=== PATIENT | female | born 1995 | race Caucasian/White ===

== ENCOUNTER → 2019-11-09 10:04 | Outpatient (BNVA) | payer OTHER, SELFPAY | PROVIDERS: Family Provider General Practice; Referring Provider Obstetrics & Gynecology; Visit Provider Obstetrics & Gynecology | DX: Z32.01 Encounter for pregnancy test, result positive (principal) | CPT/HCPCS: 81025 ==

== ENCOUNTER → 2019-11-14 10:34 | Outpatient (BNVA) | payer OTHER, SELFPAY | PROVIDERS: Family Provider General Practice; Visit Provider Obstetrics & Gynecology | DX: O20.0 Threatened abortion (principal); Z3A.00 Weeks of gestation of pregnancy not specified | CPT/HCPCS: 84702 ==

== ENCOUNTER → 2019-11-17 15:02 | Outpatient (BNVA) | payer OTHER, SELFPAY | PROVIDERS: Family Provider General Practice; Referring Provider Obstetrics & Gynecology; Visit Provider Obstetrics & Gynecology | DX: O20.0 Threatened abortion (principal); Z3A.01 Less than 8 weeks gestation of pregnancy | CPT/HCPCS: 76817 ==

== ENCOUNTER → 2019-12-06 10:52 | Outpatient (BNVA) | payer OTHER, SELFPAY | PROVIDERS: Family Provider General Practice; Visit Provider Nurse Practitioner Women's Health | DX: Z01.89 Encounter for other specified special examinations (principal) | CPT/HCPCS: 84315 ==

== ENCOUNTER → 2019-12-14 07:55 | Outpatient (BNVA) | payer OTHER, SELFPAY | PROVIDERS: Family Provider General Practice; Visit Provider Obstetrics & Gynecology | DX: O41.8X10 Other specified disorders of amniotic fluid and membranes, first trimester, not applicable or unspecified (principal); O46.8X1 Other antepartum hemorrhage, first trimester | CPT/HCPCS: 80053; 80307; 84315; 85027; 86592; 86762; 86803; 86850; 86900; 87340; 87806 ==

== ENCOUNTER → 2019-12-26 09:18 | Outpatient (BNVA) | payer OTHER, SELFPAY | PROVIDERS: Family Provider General Practice; Visit Provider Obstetrics & Gynecology | DX: Z34.90 Encounter for supervision of normal pregnancy, unspecified, unspecified trimester (principal); Z34.01 Encounter for supervision of normal first pregnancy, first trimester; Z12.4 Encounter for screening for malignant neoplasm of cervix; O26.892 Other specified pregnancy related conditions, second trimester; Z67.91 Unspecified blood type, Rh negative | CPT/HCPCS: 84315; 87491; 87591; 88175 ==

== ENCOUNTER 2020-04-12 21:43 | Emergency (ER) | payer OTHER, SELFPAY ==
[2020-04-12 21:55] VITALS: BP 116/74; PULSE 91; RESP 18; TEMP 36.9; O2SAT 94
--- NOTE | 2020-04-12 22:14 | ED_ITS ---
HPI - General Adult General: Chief complaint: General Medical Stated complaint: POSS UTI Time Seen by Provider: 04/12/20 21:46 Source: patient Mode of arrival: ambulatory Limitations: no limitations History of Present Illness: HPI narrative: 24-year-old female who is currently 27 weeks . Patient states she has had some abdominal pain with dysuria and felt like she has pain in her bladder. She states she believes she has a UTI. She denies any fever. She denies any vaginal discharge or bleeding. Onset (ago): day(s) Associated symptoms: Deny chest pain, dyspnea, headache(s), nausea, rash or vomiting Review of Systems Const: Denies: fever(s), chills, body aches or change in appetite Eyes: Denies: blurry vision or eye discomfort ENMT: Denies: throat pain or dental pain Card: Denies: chest pain Resp: Denies: dyspnea GI: Denies: abdominal pain, nausea, vomiting or diarrhea : Reports: dysuria Musc: Denies: neck pain or back pain Skin/Breast: Denies: rash Neuro: Denies: headache(s) Psych: Denies: depression Travis/Lymph: Denies: easy bruising All/Imm: Denies: urticaria PFSH ED PFSH: Medical History No significant past medical history Denies diabetes, asthma, hypertension, seizures, DVT/PE, herpes, Surgical History H/O cyst of breast (~2012) benign cyst removed from left breast in 2012 Family History Grandmother Hyperlipidemia Paternal grandmother Uterine cancer Maternal; age at diagnosis unknown Hypertension Paternal Grandfather Diabetes Maternal grandfather Denies family history of Colon cancer Ovarian cancer Heart disease Breast cancer Family history of thyroid problem Thyroid condition Stroke Social History Smoking and tobacco status: never smoked Alcohol intake: unknown Additional social history: - Tobacco Use: Used to smoke socially, sharing cigarettes with friends. Reports she may have smoked a total of 10 times. Denies any tobacco use since 08/2019. Drug Use: Denies past or current use. Alcohol Use: Drinks socially, one alcoholic beverage 3-4 times monthly on average. Denies any alcohol use since being . Work/Study Status: Currently unemployed and looking for work. 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 Physical Exam Const: COMMON NORMALS: no acute distress, patient oriented x3 and healthy appearing HENMT: COMMON NORMALS: normocephalic and atraumatic HEAD & SCALP: normocephalic and atraumatic Eye: COMMON NORMALS: Equal, round and reactive pupils present and EOMs intact bilaterally PUPIL: Yes Equal, round and reactive pupils present Neck/C-Spine: COMMON NORMALS: full ROM and supple Chest: COMMONS NORMALS: normal inspection of the chest and normal palpation of entire chest wall Resp: COMMON NORMALS: normal respiratory effort, No retractions, No use of accessory muscles and clear to auscultation bilaterally AUSCULTATION: clear to auscultation bilaterally Cardio: COMMON NORMALS: regular rate, regular rhythm and No murmurs present (Cardio) RATE: regular rate RHYTHM: regular rhythm GI: COMMON NORMALS: Normal to inspection, nondistended, normoactive bowel sounds present, Soft to palpation, non-tender and no masses PALPATION: Yes Soft to palpation OTHER: gravid uterus Extremity: COMMON NORMALS: normal to inspection and full ROM Neuro: COMMON NORMALS: patient oriented x3, moves all extremities and no focal motor deficits Psych: COMMON NORMALS: mental status grossly normal, Normal thought process present and cooperative THOUGHT PROCESS: Normal thought process present Skin: COMMON NORMALS: no rashes or lesions noted and no wounds GENERAL SKIN EXAM: no rashes or lesions noted Course Vital Signs: Vital signs: Vital Signs Temperature 98.5 F 04/12/20 21:55 Pulse Rate 91 04/12/20 21:55 Respiratory Rate 18 04/12/20 21:55 Blood Pressure 116/74 04/12/20 21:55 Pulse Oximetry 94 04/12/20 21:55 MDM - General Adult MDM Narrative: Medical decision making narrative: Clif presents here with urinary tract infection and . Patient has no bleeding and will treat with Keflex. She is having slight pain and is 27 weeks and will discharge to labor and delivery. Lab Data: Labs: Lab Results 04/12/20 Range/Units 22:10 Urine Color Straw (Yellow) Urine Appearance Sl hazy (CLEAR) Urine pH 7 (5-7) Ur Specific Gravit y 1.005 (1.005-1.030) Urine Protein Neg (Negative) Urine Glucose (UA) Norm (Normal) Urine Ketones Negative (Negative) Urine Blood 3+ H (Negative) Urine Nitrate Negative (Negative) Urine Bilirubin Neg (NEGATIVE) Urine Urobilinogen Norm (Negative) mg/dL Ur Leukocyte Cinthia ase 2+ H (Negative) Urine RBC 0-4 H (0-2) /hpf Urine WBC 5-10 H (0-5) /hpf Ur Squamous Epith Cells 0-4 H (0-5) Amorphous Sediment Not Reportable Urine Bacteria 1+ H (NONE) Discharge Plan Discharge Patient Disposition: Home Clinical Impression: UTI in Qualifiers: Trimester: second trimester Qualified Code(s): O23.42 - Unspecified infection of urinary tract in , second trimester Condition: Stable Prescriptions: New Keflex 500 mg capsule 500 mg PO Q6H 7 Days Qty: 28 RF: 0 No Action Gummies 400 mcg-35 mg- 25 mg-5 mg tablet,chewable 2 tab PO DAILY RF: 0 Discharge Orders: Discharge Order (Routine); Ordered 04/12/20 Ordered By: Kayy Soliz Referrals: Chuck Hdz MD [Primary Care Provider] - Discharge Diet: Advance as tolerated Discharge Activity: Resume usual activity Patient Instructions: Urinary Tract Infection in Women (ED) Coding Level of Care Code ED Fitting Room Attendant for Betzaidag Fwd Exam Comprehensive
[2020-04-12 23:07] LABS: Specific Gravity, Urine 1.005 (1.005-1.030); Urine Appearance SL Hazy (CLEAR); Urine Color Straw (Yellow); pH Urine 7 (5-7)
[2020-04-12 23:08] LABS: Add Urine Microscopic? YES; Bacteria Urine 1+; Bilirubin Urine Neg (NEGATIVE); Blood Urine 3+ (Negative); Glucose Urine UA Norm (Normal); Ketones Urine Negative (Negative); Leukocyte Esterase Urine 2+ (Negative); Nitrate Urine Negative (Negative); Protein Urine Neg (Negative); RBC Urine 0-4 /hpf (0-2); Squamous Epithelial Cell Urine 0-4 (0-5); Urobilinogen Urine Norm (Negative)
[2020-04-12 23:26] VITALS: BP 108/69; PULSE 68; RESP 18; O2SAT 99
== END 2020-04-12 23:27 | disposition home or self-care (01) ==
PROVIDERS: Emergency Provider Emergency Medicine; PCP General Practice
DX: O23.42 Unspecified infection of urinary tract in pregnancy, second trimester (principal); Z3A.27 27 weeks gestation of pregnancy
CPT/HCPCS: 12345; 81001; 81003; 99282

== ENCOUNTER 2020-04-12 23:26 | Outpatient (CLI) | payer OTHER, SELFPAY ==
[2020-04-12 23:55] VITALS: BP 109/70; PULSE 79
[2020-04-13 00:12] VITALS: RESP 16; TEMP 36.7
[2020-04-13 00:14] VITALS: BMI 20.2
== END 2020-04-13 00:54 | disposition home or self-care (01) ==
LOC: OPOB 23:43
PROVIDERS: PCP General Practice; Visit Provider Obstetrics & Gynecology
DX: O23.40 Unspecified infection of urinary tract in pregnancy, unspecified trimester (principal); Z3A.00 Weeks of gestation of pregnancy not specified
CPT/HCPCS: 59025; 87077; 87086; 87186

== ENCOUNTER → 2020-04-18 16:26 | Outpatient (BNVA) | payer OTHER, SELFPAY | PROVIDERS: PCP General Practice; Visit Provider Obstetrics & Gynecology | DX: O26.892 Other specified pregnancy related conditions, second trimester (principal); Z67.91 Unspecified blood type, Rh negative; O23.42 Unspecified infection of urinary tract in pregnancy, second trimester | CPT/HCPCS: 82950; 84315; 85027; 86850 ==

== ENCOUNTER → 2020-04-24 08:06 | Outpatient (BNVA) | payer OTHER, SELFPAY | PROVIDERS: PCP General Practice; Visit Provider Obstetrics & Gynecology | DX: R73.09 Other abnormal glucose (principal) | CPT/HCPCS: 82951; 82952 ==

== ENCOUNTER → 2020-05-14 15:13 | Outpatient (BNVA) | payer OTHER, SELFPAY | PROVIDERS: PCP General Practice; Visit Provider Obstetrics & Gynecology | DX: O26.892 Other specified pregnancy related conditions, second trimester; Z67.91 Unspecified blood type, Rh negative | CPT/HCPCS: 80053; 84315 ==

== ENCOUNTER 2020-06-11 15:22 | Outpatient (CLI) | payer OTHER, SELFPAY ==
--- NOTE | 2020-06-11 13:47 | ANES.PREANE2 ---
Pre-Anesthetic Assessment Pre-Anesthetic Assessment: Height/Weight: Height 1.6 m Preop Diagnosis: IUP Proposed Procedure: epidural Familial anesthetic complications: none Social: Social History: No alcohol and No tobacco Exam: Pre-Anes Outpt Exam: alert, oriented x 3, clear to auscultation bilaterally and regular rate & rhythm Airway: Cervical ROM: WNL MP: 3 Dentition: Full Anesthetic Plan: ASA status: 2 Anesthesia: Regional (specify below) (epidural) Risk of > 500 ml blood loss (7ml/kg in children): No PFSH Anesthesia PFSH: Medical History No significant past medical history Denies diabetes, asthma, hypertension, seizures, DVT/PE, herpes, Surgical History H/O cyst of breast (~2012) benign cyst removed from left breast in 2012 Family History Grandmother Hyperlipidemia Paternal grandmother Uterine cancer Maternal; age at diagnosis unknown Hypertension Paternal Grandfather Diabetes Maternal grandfather Denies family history of Colon cancer Ovarian cancer Heart disease Breast cancer Family history of thyroid problem Thyroid condition Stroke Social History Smoking and tobacco status: never smoked Alcohol intake: unknown Additional social history: / Data Anesthesia Cardiac Studies: No Data to Display
== END 2020-06-11 15:23 ==
LOC: LAB 08-03 13:24
PROVIDERS: PCP General Practice; Visit Provider Obstetrics & Gynecology
DX: Z34.90 Encounter for supervision of normal pregnancy, unspecified, unspecified trimester (principal)
CPT/HCPCS: 84315; 87081

== ENCOUNTER 2020-07-09 10:30 | Outpatient (CLI) | payer OTHER, SELFPAY ==
[2020-07-09 10:44] VITALS: BP 110/77; PULSE 69
[2020-07-09 11:03] VITALS: RESP 16; TEMP 36.5
--- NOTE | 2020-07-09 11:39 | US_ITS ---
WS: [id number] ULTRASOUND OB LIMITED TECHNIQUE: Limited ultrasound examination of the fetus. CLINICAL INFORMATION: Nonreactive NST COMPARISON: None. FINDINGS: Cervix measures 3.9 cm Single interuterine gestation. presentation is vertex heart rate 131 BPM. Normal ALEXI Biophysical profile 8 out of 8. breathin movement: 2 tone: 2 Amniotic fluid: 2 US/US OB BPP wo NST [id number] IMPRESSION: 1. Normal biophysical profile 8 out of 8 2. Cervix measures 3.9 cm
== END 2020-07-09 12:30 | disposition home or self-care (01) ==
LOC: OPOB 10:36 → OBGYN 10:38
PROVIDERS: PCP General Practice; Visit Provider Obstetrics & Gynecology
DX: O48.0 Post-term pregnancy (principal); Z3A.00 Weeks of gestation of pregnancy not specified
CPT/HCPCS: 76819; 84315

== ENCOUNTER 2020-07-11 02:50 | Inpatient (IN) | payer OTHER, SELFPAY ==
[2020-07-11] VITALS (93 sets, daily range): BP systolic 0–142; BP diastolic 0–96; PULSE 65–109; RESP 16–20; TEMP 36.4–37.2; O2SAT 90–100; BMI 23.6
[2020-07-11] MEDS: lactated ringers 1,000 ML 999 ML IV (03:29)
[2020-07-11 03:39] LABS: Basophils % 0.2 %; Eosinophils % 0.2 %; Hematocrit 41.3 % (37.0-47.0); Hemoglobin 13.6 g/dL (11.5-15.3); Lymphocytes % 20.6 %; Mean Corpuscular HGB Conc 32.9 g/dL (30.0-36.0); Mean Corpuscular Hemoglobin 29.1 pg (28.0-34.0); Mean Corpuscular Volume 88.4 fL (81-99); Monocytes # 0.7 10^3/uL (0.2-0.9); Monocytes % 6.6 %; Neutrophils # 7.15 10^3/uL (1.8-7.7); Nucleated Red Blood Cells % 0 %; Platelet Count 199 10^3/cmm (130-400); Red Blood Count 4.67 10^6/uL (4.1-5.3); Red Cell Distribution Width 12.9 % (12.1-15.1); White Blood Count 9.9 10^3/uL (4.0-10.0)
--- NOTE | 2020-07-11 04:50 | ANES.PREANE2 ---
Pre-Anesthetic Assessment Pre-Anesthetic Assessment: Height/Weight: Height 1.57 m Weight 58.513 kg Temp Pulse Resp BP Pulse Ox 98.8 F 82 17 133/57 100 07/11/20 02:29 07/11/20 04:46 07/11/20 02:46 07/11/20 04:46 07/11/20 04:46 Preop Diagnosis: IUP Proposed Procedure: Lumbar Labor Epidural Was Beta Brunilda taken within 24 hours: N/A Social: Social History: No alcohol and No tobacco Exam: Pre-Anes Outpt Exam: alert, oriented x 3, clear to auscultation bilaterally and regular rate & rhythm Airway: Submandibular: WNL Cervical ROM: WNL MP: 2 Dentition: Full History/ROS: No significant history except as noted and No significant complaints Pulmonary: Pulmonary: None reported CV/HEM: CV/HEM: None reported : : None reported Hepatic: Hepatic: None reported GI: GI: None reported Metabolic: Metabolic: None reported Musc/skel: Musc/skel: None reported Neuropsych: Neuropsych: None reported Anesthetic Plan: ASA status: 2 Anesthesia: Regional (specify below) (epidural) Meds/Allergies Current Medications: Current Medications Generic Name Dose Route Start Last Admin Trade Name Freq PRN Reason Stop Dose Admin Lactated Ringer's 1,000 mls @ 999 m ls/hr 07/11/20 02:46 07/11/20 03:29 Lactated Ringers IV 999 mls/hr .Q1H1M PRN Administration See label comment s PFSH Anesthesia PFSH: Medical History (Updated 07/09/20 @ 11:21 by Moo Esqueda MD) No significant past medical history Denies diabetes, asthma, hypertension, seizures, DVT/PE, herpes, PMD: none Surgical History H/O cyst of breast (~2012) benign cyst removed from left breast in 2012 Family History Grandmother Hyperlipidemia Paternal grandmother Uterine cancer Maternal; age at diagnosis unknown Hypertension Paternal Grandfather Diabetes Maternal grandfather Denies family history of Colon cancer Ovarian cancer Heart disease Breast cancer Family history of thyroid problem Thyroid condition Stroke Social History (Updated 07/09/20 @ 09:45 by Cheryl Gutierrez RN) Smoking and tobacco status: never smoked Alcohol intake: unknown Additional social history: / Female Reproductive History: : 1 Data Anesthesia CBC & Chem 7: 07/11/20 03:05 Other Labs: Laboratory Results - last 48 hr 07/11/20 03:05 WBC 9.9 RBC 4.67 Hgb 13.6 Hct 41.3 MCV 88.4 MCH 29.1 MCHC 32.9 RDW 12.9 Plt Count 199 MPV 9.0 Neut % (Auto) 72.0 Lymph % (Auto) 20.6 [place] % (Auto) 6.6 Eos % (Auto) 0.2 Baso % (Auto) 0.2 Neut # (Auto) 7.15 Lymph # (Auto) 2.0 [place] # (Auto) 0.7 Eos # (Auto) 0.0 Baso # (Auto) 0.0 Nucleated RBC % (auto) 0 Nucleated RBCs # 0.0 Cardiac Studies: No Data to Display Anesthesia Procedures Epidural: Time Out Performed: Yes Consents Signed: Procedure Consent Consent: from patient, risks and benefits reviewed and patient agrees to proceed Lumbar Level: L3-L4 Epidural position: sitting Epidural procedure: sterile prep of area, 1% lidocaine to numb the area (5), 18 g needle, negative for paresthesia passed, neg for paresthesia, test dose given, 1.5% xylocaine 1:200k epi (5), 0.2% Ropivacaine bolus ml (5), placed PCEA (5cc q10min x 3), no systemic response, sterile dressing applied, L.U.D. no apparent complications and 0.2% Ropiavacaine @ mls/hr (11.5) Additional Comments: Called to OB for epidural placement, pt evaluated and assessed for placement and explained procedure. Labs reviewed. Pt agrees to proceed. placed to 5cm in space and tolerated well. Bolused with epidural pump and VSS throughout per nursing chart. Last BP 119/62. Pain much improved.
--- NOTE | 2020-07-11 06:33 | PC.NURSE ---
0510 - Dr. Trivedi orders to perform straight catheter due to 16fr senior catheter being to large.
--- NOTE | 2020-07-11 06:35 | PC.NURSE ---
straight catheter performed at 0520 - 350ml out.
[2020-07-11] MEDS: dextrose 5%-lactated ringers 1,000 ML 125 ML IV (08:04)
[2020-07-11] MEDS: oxytocin 30 UNIT/500 ML BAG 600 UNIT IV (08:05)
[2020-07-11] MEDS: lidocaine 2% INJ 20 mL INJECTION (09:52)
--- NOTE | 2020-07-11 10:38 | PM.DELIVERY ---
Delivery Note: Date of delivery: July 11, 2020 Pre-delivery diagnoses: at 40-2/7 weeks gestation Post-delivery diagnoses: 1. at 40-2/7 weeks gestation, 2. Viable female infant. Procedure: Spontaneous vaginal delivery Op report anesthesia: Epidural Delivering Physician: Dr. Eben Trivedi Estimated blood loss (mL): 150 Pre-Delivery Course: Patient is a 25-year-old white female 1, para 0 with an LMP of 10/03/2019 and an EDC of 07/09/2020 based on LMP and consistent with 6-week ultrasound, which places her at 40-2/7 weeks gestation. She presented to labor and delivery at 02:24 on 07/11/2020 with complaint of contractions. She was found to be 6 cm dilated and 100% effaced and was nery every 3 minutes. She had epidural placed. By 05:09 she had artificial rupture membranes performed with clear fluid present. She was 9-1/2 cm dilated at that time. She progressed slowly after that and was found to be completely dilated by 07:16. During the labor process, she had episodes of minimal variability to normal variability. She had very few accelerations present during the labor course. She also had several episodes of 3 to 5-minute decelerations which the baby would recover from. Following artificial rupture of membranes, she developed recurrent variable decelerations which continued up until delivery. Delivery: Patient started pushing at 07:27 and delivered at 09:58 as a spontaneous vaginal delivery of a left occiput anterior presentation female infant over a second-degree midline episiotomy under epidural anesthesia. Following delivery of the infant's head, one loop of loose nuchal cord was noted. Baby delivered through the cord. The rest of the baby delivered atraumatically with the right shoulder anterior. Baby was placed on the mother's abdomen where it was spontaneously crying. Cord was clamped and cut. Baby was taken to the warmer for further evaluation by Dr. Rubio and the nurses. Cord blood was obtained. Pitocin bolus was started. Placenta delivered intact by simple expression at 10:03. The cervix and vagina were palpated and noted to be intact. The labia were inspected and noted to be intact except for her second-degree midline episiotomy. This was repaired with 2-0 and 3-0 Vicryl suture with additional local anesthesia of 2% lidocaine plain. FINDINGS 1. Viable female weighing 6 lbs 1 oz (2745 g) with a length of 19-1/2 inches and Apgars of 8 at 1 minute and 9 at 5 minutes. 2. Three-vessel cord with 1 loop of nuchal cord. The cord was very thin with minimal Aurora's jelly present. 3. Normal-appearing placenta with a membranous cord insertion, approximately 3 cm from the edge of the placenta. Post-Delivery Status: Mother and infant were left to recover in satisfactory condition. Coding Level of Care Code Acute [employer] for Yoandy [place]
[2020-07-11] MEDS: lanolin oint 7 gm 1 APPLIC TOPICAL (13:02)
[2020-07-11] MEDS: benzocaine-menthol 78 gm Canister 1 SPRAY TOPICAL (13:03)
[2020-07-11] MEDS: TRAMadol 50 mg Tablet PO (14:17)
[2020-07-11] MEDS: ibuprofen 800 mg tablet PO ×2 (14:17→21:44)
--- NOTE | 2020-07-11 14:26 | PC.NURSE ---
1100 Pt assisted with initial breastfeed. Pt had nipple rings in place, nurse assisted pt in removing them and handed them to pt's . Pt educated on hand expression and was able to express a drop of colostrum. Discussed potential for scar tissue to effect expression of milk. Assisted pt in successfully latching babe on and babe then fed for approximately 30 minutes.
[2020-07-11] MEDS: docusate sodium 100 mg Capsule PO (17:42)
[2020-07-12 05:00] VITALS: BP 96/56; PULSE 70; RESP 18; TEMP 36.7
[2020-07-12 07:40] LABS: Hematocrit 36.3 % (37.0-47.0); Hemoglobin 11.7 g/dL (11.5-15.3); Mean Corpuscular HGB Conc 32.2 g/dL (30.0-36.0); Mean Corpuscular Hemoglobin 29.4 pg (28.0-34.0); Mean Corpuscular Volume 91.2 fL (81-99); Mean Platelet Volume 9.1 fL (7.4-10.4); Platelet Count 149 10^3/cmm (130-400); Red Blood Count 3.98 10^6/uL (4.1-5.3); Red Cell Distribution Width 13.3 % (12.1-15.1); White Blood Count 12.4 10^3/uL (4.0-10.0)
[2020-07-12] MEDS: acetaminophen 325 mg Tablet 650 MG PO (08:15)
[2020-07-12 08:50] VITALS: BP 104/67; PULSE 72; RESP 16; TEMP 36.5
[2020-07-12] MEDS: ibuprofen 800 mg tablet PO ×2 (08:53→16:49)
[2020-07-12] MEDS: docusate sodium 100 mg Capsule PO (08:53)
--- NOTE | 2020-07-12 11:04 | ANE.PACU2 ---
Inpatient post-anesthesia follow up: Airway intact: Yes Vital signs: Temperature 97.7 F Pulse Rate 72 Respiratory Rate 16 Blood Pressure 104/67 Pulse Oximetry 96 Oxygen Delivery Me thod Room Air Oxygen Flow Rate Fraction of Inspir ed Oxygen Hydration adequate: Yes Nausea and vomiting: No Pain level: 2 Mental status: Baseline Additional Comments: No signs of infection at epidural site, urinating without senior, up and walking with no weakness/numbness, no headaches
--- NOTE | 2020-07-12 16:55 | P.DS_ITS ---
Discharge Providers Date of Admission: 07/11/20 02:50 Date of Discharge: July 12, 2020 Attending Provider at Admission: Eben Trivedi MD Attending Provider at Discharge: bEen Trivedi MD Primary Care Provider: Cuhck Hdz MD Diagnoses at Discharge Discharge Diagnosis (1) Term delivered: Status: Acute Reason for Visit Reason for Visit: contractions Hospital Course Hospital Course Patient has a 25-year-old white female 1, para 0 with an LMP of 10/03/2019 and an EDC of 07/09/2020 based on LMP and consistent with a 6-week ultrasound, which placed her at 40-2/7 weeks gestation at time of admission. She presented to L&D on 07/11/2020 at 02:24 with complaint of contractions. She was 6 cm dilated 100% effaced and nery every 3 minutes. Epidural was placed. She had artificial rupture of membranes with clear fluid at 05:09 and was 9-1/2 cm dilated. She progressed slowly, but did dilate to complete dilation by 07:16. She started pushing at 07:27 and delivered at 09:58 as a spontaneous vaginal delivery of in the left occiput anterior presentation female infant over a second-degree midline episiotomy. She had a viable female weighing 6 lbs 1 oz (2745 g) with a length of 19-1/2 inches and Apgars of 8 at 1 minute and 9 at 5 minutes. Mother and infant both did well following delivery. Day 1 Patient was without complaints. Reported pain has been well controlled. Denied lightheadedness or dizziness with ambulation. Denied shortness of breath or chest pains. Reported tolerating regular diet without nausea or vomiting. Denied problems with urination. States bleeding was about like a heavy menses. Physical exam: See below Plan Discharge to home. Discharge instructions discussed with patient. Patient to follow-up with Dr. Rosado in approximately 6 weeks for exam. Physical Exam Const: COMMON NORMALS: no acute distress, average body habitus, alert and well nourished GENERAL APPEARANCE: well developed ORIENTATION/CONSCIOUSNESS: Yes oriented to person, Yes oriented to place and Yes oriented to time Resp: COMMON NORMALS: normal respiratory effort and clear to auscultation bilaterally AUSCULTATION: clear to auscultation bilaterally Cardio: COMMON NORMALS: regular rate, regular rhythm, No gallops present (Cardio), No murmurs present (Cardio) and No rub (Cardio) RATE: regular rate RHYTHM: regular rhythm GI: COMMON NORMALS: Soft to palpation, non-tender, No hepatosplenomegaly present and no masses (Except for nontender uterus) AUSCULTATION: Yes normoactive bowel sounds PALPATION: Yes Soft to palpation, Yes No hepatosplenomegaly present and No Hernia present : EXTERNAL FEMALE EXAM: No Hernia present Extremity: COMMON NORMALS: no calf tenderness NARRATIVE EXTREMITY EXAM: Trace to 1+ lower extremity edema Neuro: SENSORIUM/ORIENTATION: Yes alert, Yes oriented to person, Yes oriented to place and Yes oriented to time Psych: COMMON NORMALS: normal affect MOOD & AFFECT: Yes euthymic mood Discharge Data Data Completed and Pending: Labs from last 24 hours 07/12/20 05:20 WBC 12.4 H RBC 3.98 L Hgb 11.7 Hct 36.3 L MCV 91.2 MCH 29.4 MCHC 32.2 RDW 13.3 Plt Count 149 MPV 9.1 Vitals: Last Vital Signs Temp 97.7 F 07/12/20 08:50 Pulse 72 07/12/20 08:50 Resp 16 07/12/20 08:50 BP 104/67 07/12/20 08:50 Pulse Ox 96 07/11/20 18:36 Discharge Plan Discharge Patient Disposition: Home Condition: Stable Prescriptions: Continued Gummies 400 mcg-35 mg- 25 mg-5 mg tablet,chewable 2 tab PO DAILY RF: 0 Discharge Orders: Discharge Order (Routine); Ordered 07/12/20 Ordered By: Eben Trivedi Referrals: Keisha Aguilar MD [Physician] - 6 Weeks ( exam) Discharge Diet: Regular Discharge Activity: Limit activity as instructed Patient Instructions: OB Discharge Report, OB Food/Drug Interaction Guide, OB Care at Home, OB Vaginal Deliveries - [facility] Activity Restrictions/Additional Instructions: May use [id number] ibuprofen 200 mg, 3 tablets 4 times a day or 4 tablets 3 times a day as needed for pain. Discharge Attestations Time Spent in Discharge Care*: less than 30 min Quality Metrics Clinical Quality Measures During this hospital stay, did patient experience: None Coding Level of Care Code Acute Director Of Radio Services for g Fwd Exam Detailed Diagnoses Term delivered O80
[2020-07-12 17:05] VITALS: BP 118/79; PULSE 85; RESP 17; TEMP 36.6
[2020-07-12] MEDS: TRAMadol 50 mg Tablet PO (18:24)
== END 2020-07-12 20:00 | disposition home or self-care (01) | DRG 807 ==
LOC: OBGYN 08:18 → OPOB 07-12 10:25
PROVIDERS: Admitting Provider Obstetrics & Gynecology; PCP General Practice; Visit Provider Obstetrics & Gynecology
DX: O69.81X0 Labor and delivery complicated by cord around neck, without compression, not applicable or unspecified (principal); Z37.0 Single live birth; O76 Abnormality in fetal heart rate and rhythm complicating labor and delivery; Z3A.40 40 weeks gestation of pregnancy; O70.1 Second degree perineal laceration during delivery
CPT/HCPCS: 12345; 36415; 51702; 59025; 59409; 85025; 85027; 98960; 99211; J2795

== ENCOUNTER 2024-05-29 18:15 | Outpatient (CLI) | payer OTHER, SELFPAY ==
[2024-05-29 18:15] VITALS: RESP 17; BMI 23.3
[2024-05-29 18:23] VITALS: BP 126/81; PULSE 80
[2024-05-29 18:40] VITALS: BP 126/74; PULSE 74
[2024-05-29 18:55] VITALS: BP 116/81; PULSE 87
[2024-05-29 19:11] VITALS: BP 120/82; PULSE 85
[2024-05-29 19:26] VITALS: BP 116/78; PULSE 83
== END 2024-05-29 20:52 | disposition home or self-care (01) ==
LOC: OPOB 18:19 → OBGYN 18:20
PROVIDERS: PCP General Practice; Visit Provider Family Medicine
DX: O26.899 Other specified pregnancy related conditions, unspecified trimester (principal); Z3A.00 Weeks of gestation of pregnancy not specified; R10.9 Unspecified abdominal pain
CPT/HCPCS: 59025; 99211

== ENCOUNTER 2024-05-31 03:45 | Inpatient (IN) | payer OTHER, SELFPAY ==
[2024-05-31] VITALS (12 sets, daily range): BP systolic 103–161; BP diastolic 66–91; PULSE 63–99; RESP 16; TEMP 36.4–36.7; O2SAT 96; BMI 22.8
[2024-05-31 04:06] LABS: Basophils % 0.2 %; Eosinophils % 0.2 %; Hematocrit 42.4 % (36-47); Lymphocytes # 2.4 10^3/uL (0.8-4.8); Lymphocytes % 23.7 %; Mean Corpuscular HGB Conc 33.3 g/dL (30-55); Mean Corpuscular Hemoglobin 29.8 pg (27-33); Mean Corpuscular Volume 89.6 fl (85-98); Mean Platelet Volume 9.1 fL (7.4-10.4); Monocytes # 0.7 10^3/uL (0.2-0.9); Monocytes % 6.5 %; Neutrophils # 7.07 10^3/uL (1.8-7.7); Neutrophils % 68.8 %; Nucleated Red Blood Cells % 0 %; Platelet Count 165 10^3/cmm (157-399); Red Blood Count 4.73 10^6/uL (3.85-5.65); Red Cell Distribution Width 13.8 % (12.1-15.1); White Blood Count 10.27 10^3/uL (3.29-11.43)
[2024-05-31] MEDS: ampicillin 2,000 MG in sodium chloride 0.9% (plus) 50 ML 100 MG IV (04:08)
[2024-05-31] MEDS: lactated ringers 1,000 ML 999 ML IV (04:09)
[2024-05-31] MEDS: oxytocin 30 UNIT/500 ML BAG 600 UNIT IV (04:23)
[2024-05-31] MEDS: lidocaine 2% INJ 20 mL INJECTION (04:27)
--- NOTE | 2024-05-31 04:36 | P.HPUD_ITS ---
Labor & Delivery H&P Update Date of Procedure: May 31, 2024 Date H&P Performed: 05/26/24 Changes to previous documentation: The patient arrived at the hospital having consistent contractions with a cervix that was 8 cm dilated. Admission Diagnosis: 29-year-old 2 para 1-0-0-1 at 38 weeks estimated gestational age presenting in active labor. Planned procedure: Vaginal delivery Other information: Clif is a pleasant 29-year-old female who arrived to the hospital after having had contractions for several hours prior to coming to the hospital. When she arrived to the hospital her membranes were intact, but the ruptured shortly after arrival. Otherwise she had no other symptoms of significance including no fever or any symptoms consistent with preeclampsia. She had consistent care during her . She had no problems other than having a small for gestational age . While he was small for gestational age, his body was proportional. But due to his small size, we are planning to have an induction at 39 weeks estimated gestational age. Otherwise, her labs were relatively unremarkable as well. Her blood type is AB-. Her antibody screen was negative. She received RhoGAM on March 17. She passed her glucose screen. Her infectious disease profile was within no rmal limits. She is rubella nonimmune. And she is GBS positive. Related Problem List Diagnoses (1) 38 weeks gestation of : (2) Positive GBS test: (3) Small for gestational age fetus: A&P Assessment and plan (1) 38 weeks gestation of : I anticipate routine labor and delivery. GBS protocol will be initiated, but based on her cervical dilation it is unlikely that she will receive adequate antibiotics prior to delivery. We discussed the significance of this with the patient. She is aware that it would be recommended that her baby stay in the hospital for 48 hours postdelivery but her hospital stay will likely be unaffected. Status: Acute (2) Positive GBS test: Status: Acute (3) Small for gestational age fetus: Status: Acute
--- NOTE | 2024-05-31 04:44 | P.PCNOB_ITS ---
Delivery Note: Date of delivery: May 31, 2024 Pre-delivery diagnoses: 1. 29-year-old 2 para 1-0-0-1 a t 38 weeks estimated gestational age 2. GBS positive status 3. Small for gestational age Post-delivery diagnoses: Status post spontaneous vaginal delivery Procedure: Spontaneous vaginal delivery Delivering Physician: Anam Reaves Estimated blood loss (mL): 50 Pre-Delivery Course: The patient arrived at the hospital in active labor. She was found to be 8 cm dilated. An IV was placed and ampicillin was initiated. She quickly progressed to complete. Delivery: DELIVERY: The patient progressed to complete without difficulty. She delivered a male with a weight of 5 pounds 12 ounces with Apgars of 10, 10. The baby was delivered from the KRYSTLE position and placed on the mother's abdomen. The cord was then clamped and cut. There was no nuchal cord. There was no meconium. The placenta and 3 vessel cord were delivered intact shortly thereafter. The perineum and vaginal vault were carefully examined. A first-degree posterior midline laceration that was slightly to the right side of the vagina was repaired with 3-0 Vicryl with a total of 3 running stitches in the usual fashion. Both the mother and the baby were in stable condition. Post-Delivery Status: Good History History History 2 Term 1 0 Miscarriages/Ectopic 0 Living Children 1 A&P Assessment and plan (1) 38 weeks gestation of : I have anticipate routine care. (2) Small for gestational age fetus: (3) Positive GBS test: (4) Spontaneous vaginal delivery: Coding Level of Care Code Acute Code for Chg Fwd Diagnoses 38 weeks gestation of Z3A.38 Small for gestational age fetus Positive GBS test B95.1 Spontaneous vaginal delivery O80
[2024-05-31] MEDS: HYDROcodone-acetaminophen 5-325 mg Tablet PO ×2 (05:33→20:39)
[2024-05-31] MEDS: benzocaine-menthol 78 gm Canister 1 SPRAY TOPICAL (05:34)
[2024-05-31] MEDS: PRENATAL VIT NO.130/IRON/FOLIC 1 EACH TABLET PO (09:04)
[2024-05-31] MEDS: docusate sodium 100 mg Capsule PO ×2 (09:04→20:39)
[2024-05-31] MEDS: ibuprofen 800 mg tablet PO ×3 (09:04→20:39)
[2024-05-31 16:36] LABS: Hematocrit 35.6 % (36-47); Mean Corpuscular HGB Conc 33.4 g/dL (30-55); Mean Corpuscular Hemoglobin 30.4 pg (27-33); Mean Corpuscular Volume 90.8 fl (85-98); Mean Platelet Volume 9.7 fL (7.4-10.4); Platelet Count 158 10^3/cmm (157-399); Red Blood Count 3.92 10^6/uL (3.85-5.65); White Blood Count 13.58 10^3/uL (3.29-11.43)
[2024-06-01 05:05] VITALS: BP 103/66; PULSE 65; RESP 14
--- NOTE | 2024-06-01 08:13 | P.DS_ITS ---
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 She progressed to complete and had an unremarkable delivery of a healthy male infant. Her course was also unremarkable. Her bleeding was within normal limits. Her pain was well-controlled. Information Peripartum Data: Infant Delivery Method: Vaginal Physical Exam Narrative: The patient is alert. She appears comfortable. Her heart has a regular rate and rhythm with no murmurs appreciated. Lungs are clear to auscultation bilaterally. Her fundus is firm and below the umbilicus. History History History 2 Term 1 0 Miscarriages/Ectopic 0 Living Children 1 Discharge Data Studies Completed and Pending Laboratory Results WBC 13.58 10^3/uL (3.29-11.43) H 05/31/24 16:26 RBC 3.92 10^6/uL (3.85-5.65) 05/31/24 16:26 Hgb 11.90 g/dL (11.27-16.99) 05/31/24 16:26 Hct 35.6 % (36-47) L 05/31/24 16:26 MCV 90.8 fl (85-98) 05/31/24 16:26 MCH 30.4 pg (27-33) 05/31/24 16:26 MCHC 33.4 g/dL (30-55) 05/31/24 16:26 RDW 14.0 % (12.1-15.1) 05/31/24 16:26 Plt Count 158 10^3/cmm (157-399) 05/31/24 16:26 MPV 9.7 fL (7.4-10.4) 05/31/24 16:26 Neut % (Auto) 68.8 % 05/31/24 03:50 Lymph % (Auto) 23.7 % 05/31/24 03:50 [place] % (Auto) 6.5 % 05/31/24 03:50 Eos % (Auto) 0.2 % 05/31/24 03:50 Baso % (Auto) 0.2 % 05/31/24 03:50 Neut # (Auto) 7.07 10^3/uL (1.8-7.7) 05/31/24 03:50 Lymph # (Auto) 2.4 10^3/uL (0.8-4.8) 05/31/24 03:50 [place] # (Auto) 0.7 10^3/uL (0.2-0.9) 05/31/24 03:50 Eos # (Auto) 0.0 10^3/uL (0.0-0.8) 05/31/24 03:50 Baso # (Auto) 0.0 10^3/uL (0.0-0.1) 05/31/24 03:50 Nucleated RBC % (auto) 0 % 05/31/24 03:50 Nucleated RBCs # 0.0 /100WBC 05/31/24 03:50 Blood Type AB Negative 05/31/24 03:50 Rho(D) Type Rh negative 05/31/24 03:50 Antibody Screen Positive 05/31/24 03:50 Antibody Identification Anti-D 05/31/24 03:50 Vitals Last Vital Signs Temp 97.7 F 05/31/24 22:00 Pulse 65 06/01/24 05:05 Resp 14 06/01/24 05:05 BP 103/66 06/01/24 05:05 Pulse Ox 96 05/31/24 22:00 O2 Del Method Room Air 06/01/24 05:05 Results Labs OB ([facility]): Obstetrics US 07/09/20 Obstetrics US/Biophysical Profile Blood Type AB Negative 05/31/24 Antibody Screen Positive 05/31/24 Hct 35.6 % (36-47) L 05/31/24 Hgb 11.90 g/dL (11.27-16.99) 05/31/24 Rho(D) Type Rh negative 05/31/24 Plt Count 158 10^3/cmm (157-399) 05/31/24 Hep Bs Antigen Non-reactive (Nonreactive) 12/14/19 Hepatitis C Antibody Non-reactive (Nonreactive) 12/14/19 Rubella IgG Antibody 21.7 IU/mL (0.0-9.0) H 12/14/19 RPR Nonreactive (Nonreactive) 12/14/19 HIV 1&2 Ab & HIV 1 Ag Non-reactive (Non-Reactiv) 12/14/19 Glucose 1 Hr 50 gm 161 mg/dL (85-140) H 04/18/20 Gest Glucose Tolerance mg/dL 04/24/20 Ser , Semi-Qnt 45758.00 mIU/mL 11/14/19 HCG, Qual Positive (Negative) H 11/09/19 Urine Opiates Screen Negative ng/mL (Negative) 12/14/19 Ur Barbiturates Screen Negative ng/mL (Negative) 12/14/19 Ur Phencyclidine Scrn Negative ng/mL (Negative) 12/14/19 Ur Amphetamines Screen Negative ng/mL (Negative) 12/14/19 U Benzodiazepines Scrn Negative ng/mL (Negative) 12/14/19 Urine Cocaine Screen Negative ng/mL (Negative) 12/14/19 U Marijuana (THC) Screen Negative ng/mL (Negative) 12/14/19 Micro Urine Specimen 05/14/20 Pap Smear Interpret See note 12/26/19 Discharge Plan Discharge Patient Disposition: Home Condition: Stable Prescriptions: New ibuprofen 800 mg Tablet 800 mg PO TID Qty: 45 0RF Continued Gummies 400 mcg-35 mg- 25 mg-5 mg tablet,chewable 2 tab PO DAILY Discharge Orders: Discharge Order (Routine); Ordered 06/01/24 Ordered By: Anam Reaves Referrals: Anam Reaves MD [Physician] - 6 Weeks Discharge Diet: Usual diet Discharge Activity: Limit activity as instructed Patient Instructions: Depression (DC), Bleeding (DC), Preeclampsia and Eclampsia After Delivery (GEN), Hemorrhage (GEN), OB Discharge Report, OB Food/Drug Interaction Guide, OB Care at Home, Opioid Safety, OB Home Care, OB Vaginal Deliveries Discharge Attestations 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
[2024-06-01] MEDS: ibuprofen 800 mg tablet PO ×2 (08:30→14:10)
[2024-06-01] MEDS: PRENATAL VIT NO.130/IRON/FOLIC 1 EACH TABLET PO (08:30)
[2024-06-01] MEDS: docusate sodium 100 mg Capsule PO (08:30)
[2024-06-01 15:00] VITALS: BP 117/75; PULSE 61; RESP 16; TEMP 36.6; O2SAT 98
[2024-06-01 15:34] VITALS: BP 117/75; PULSE 61; RESP 16; TEMP 36.6; O2SAT 98
--- NOTE | 2024-06-01 15:35 | PC.NURSE ---
Pt discharged and rooming in with baby. Plans to discharge baby tomorrow.
== END 2024-06-01 15:36 | disposition home or self-care (01) | DRG 807 ==
LOC: OPOB 03:46 → OBGYN 03:46
PROVIDERS: Admitting Provider Family Medicine; Visit Provider Family Medicine
DX: O99.824 Streptococcus B carrier state complicating childbirth (principal); Z37.0 Single live birth; O36.5930 Maternal care for other known or suspected poor fetal growth, third trimester, not applicable or unspecified; O70.0 First degree perineal laceration during delivery; Z3A.38 38 weeks gestation of pregnancy
CPT/HCPCS: 36415; 59025; 59409; 80503; 85025; 85027; 86850; 86870; 86900; 98960; 99211; J0290; J2590; J7120